=== PATIENT | female | born 1990 | race Caucasian/White ===

== ENCOUNTER 2018-07-17 23:06 | Emergency (ER) | payer SELFPAY ==
[2018-07-17 23:29] VITALS: BP 119/79
[2018-07-17] MEDS ORDERED: LIDOCAINE 4% TRANSPARENT DRESSING 5 GM KIT TP ONE (23:36)
[2018-07-17] MEDS ORDERED: DIPH/PERTUSS(ACELL)/TETANUS VAC/PF 0.5 ML SYR (>=10YO) IM ONE (23:37)
--- NOTE | 2018-07-17 23:39 | ER Document Report ---
ED Wound - General Chief Complaint: Laceration Stated Complaint: EYE BROW LACERATION Time Seen by Provider: 07/17/18 23:30 Primary Care Provider: ANTHONY MORAN FNP [Primary Care Provider] - Follow up as needed Notes: Patient is a 27-year-old female that comes to the emergency department for chief complaint of laceration to the forehead just above her right eyebrow. She states that she was struck in the face accidentally by her child who was closing a car door. The door hit her face. She denies headache, loss of consciousness, vomiting, or any other injuries. She takes no daily medications. Her tetanus i s not up-to-date within 5 years. TRAVEL OUTSIDE OF THE [place] IN LAST 30 DAYS: No - Related Data Allergies/Adverse Reactions: No Known Allergies Allergy (Unverified 07/17/18 23:50) Past Medical History - General Information source: Patient - Social History Smoking Status: Never Smoker Frequency of alcohol use: None Drug Abuse: None Lives with: Family Family History: Reviewed & Not Pertinent - Medical History Medical History: Negative Surgical Hx: Negative - Immunizations Immunizations up to date: Yes Hx Diphtheria, Pertussis, Tetanus Vaccination: Yes Review of Systems - Review of Systems Constitutional: No symptoms reported EENT: No symptoms reported Cardiovascular: No symptoms reported Respiratory: No symptoms reported Gastrointestinal: No symptoms reported Genitourinary: No symptoms reported Female Genitourinary: No symptoms reported Musculoskeletal: See HPI Skin: See HPI Hematologic/Lymphatic: No symptoms reported Neurological/Psychological: No symptoms reported Physical Exam - Vital signs Vitals: Temp Pulse Resp BP Pulse Ox 97.8 F 62 18 119/79 97 07/17/18 23:27 07/17/18 23:27 07/17/18 23:27 07/17/18 23:27 07/17/18 23:27 - Notes Notes: GENERAL: Alert, interacts well. No acute distress. HEAD: Normocephalic. 1.5 cm linear full-thickness laceration just above the right eyebrow, horizontal, no nearby swelling noted, normal head exam otherwise, no other signs of trauma. EYES: Pupils equal, round, and reactive to light. Extraocular movements intact. ENT: Oral mucosa moist, tongue midline. Oropharynx unremarkable. Airway patent. Nares patent, no nasal septal hematoma, TM's intact. NECK: Full range of motion. Supple. Trachea midline. LUNGS: Clear to auscultation bilaterally, no wheezes, rales, or rhonchi. No respiratory distress. HEART: Regular rate and rhythm. No murmur ABDOMEN: Soft, non-tender. Non-distended. Bowel sounds present in all 4 quadrants. GENITOURINARY: Deferred EXTREMITIES: Moves all 4 extremities spontaneously. No edema, normal radial and dorsalis pedis pulses bilaterally. No cyanosis. BACK: no cervical, thoracic, lumbar midline tenderness. No saddle anesthesia, normal distal neurovascular exam. NEUROLOGICAL: Alert and oriented x3. Normal speech. [cranial nerves II through XII grossly intact]. PSYCH: Normal affect, normal mood. SKIN: Warm, dry, normal turgor. No rashes or lesions noted. Course - Re-evaluation Re-evalutation: No loss of consciousness, headache, vomiting, or signs of severe injury. Normal neurological exam. Discussed with patient, we will not perform a CAT scan based on the extremely low probability of intracranial hemorrhage or fracture. Wound was cleaned, repaired, discussed head injury precautions, wound care, follow-up, return precautions. Patient states understanding and agreement. - Vital Signs Vital signs: Temp Pulse Resp BP Pulse Ox 97.8 F 62 18 119/79 97 07/17/18 23:27 07/17/18 23:27 07/17/18 23:27 07/17/18 23:27 07/17/18 23:27 Procedures - Laceration/Wound Repair Right forehead Wound length (cm): 1.5 Wound's Depth, Shape: Linear Laceration pre-procedure: Sterile PPE donned, Sterile drapes applied, Shur-Clens applied Anesthetic type: Other - LMX Wound explored: Clean, No foreign body removed Wound Repaired With: Dermabond Layer Closure?: Yes Deep Layer Suture Size/Type: 5:0, Other - Vicryl Number Deep Layer Sutures: 1 Post-procedure NV exam normal: Yes Complications: No Notes: After wound was cleaned thoroughly, a single buried Vicryl suture was placed to approximate the deeper part of the wound, after this pulled the wound closer together I was able to easily Dermabond the top with good results. Discharge - Discharge Clinical Impression: Forehead laceration Qualifiers: Encounter type: initial encounter Qualified Code(s): S01.81XA - Laceration without foreign body of other part of head, initial encounter Condition: Stable Disposition: HOME, SELF-CARE Additional Instructions: The Dermabond will come off on its own in about 5-7 days. If it does not, you can apply topical ointment such as antibiotic ointment or Vaseline-based ointment to remove it. The suture under the skin will dissolve with time. You can get the area wet but avoid soaking the area or scrubbing the area. Dab dry. Your evaluation for head injury is reassuring, as result we have very low suspicion of bleeding within the brain or skull fracture. See head injury precautions listed below. You may have some postconcussive headaches, see postconcussive headache instructions below as well. Return to the emergency department for any concerning symptoms. Head Injury Precautions At this point, there is no evidence that your head injury is serious. Observation is necessary, however. During the first 24 hours, check to see approximately every 3-4 hours that the patient is easily arousable, responds normally, and can perform common tasks such as walking without difficulty. Contact your doctor or go to the hospital if any of the following things occur: Persistent vomiting, difficulty in arousing the patient, worsening or continued headache, or failure to improve as expected. Head injuries can cause symptoms that persist for a few days or even a few weeks. Post-Concussion Syndrome Post-concussion syndrome often follows a mild head injury. Dizziness, mild nausea, mild headache, trouble concentrating, and a general sense of "not being right" may persist for a week or two. This is a frequent complication of concussion. However, if the symptoms worsen, or new symptoms develop, you should be re-examined by the physician. There is no specific cure for post-concussion syndrome. You can take mild pain medication such as ibuprofen or acetaminophen. While you should not drive if you are dizzy, you can get back to your regular activities as quickly as the symptoms will allow. And while vigorous exercise may worsen the headache, mild physical activity often is helpful. Sitting and thinking about your symptoms will worsen them. If difficulties continue, you may need referral for special therapy to help you regain full mental function. Call the physician if you are worsening, or if symptoms are still present in one week. Report any new symptoms immediately. Forms: Return to Work Referrals: ANTHONY MORAN FNP [Primary Care Provider] - Follow up as needed
== END 2018-07-18 01:21 | disposition home or self-care (01) ==
LOC: ER 23:06
DX: S01.81XA Laceration without foreign body of other part of head, initial encounter (principal); W50.0XXA Accidental hit or strike by another person, initial encounter
CPT/HCPCS: 99282; 90471; 90715; 12051; J3490